=== PATIENT | female | born 1965 | race Native Hawaiian/Other Pacific Islander ===

== ENCOUNTER 2020-06-29 08:48 | Outpatient (CLI) | payer OTHER ==
[~2020-06-29] VITALS: Ht 160 cm; Wt 93.9 kg
== END 2020-06-29 22:33 | disposition home or self-care (01) ==
LOC: NM 08:48
PROVIDERS: ATTEND Specialist
DX: Z01.810 Encounter for preprocedural cardiovascular examination (principal); I10 Essential (primary) hypertension; R94.31 Abnormal electrocardiogram [ECG] [EKG]
CPT/HCPCS: A9500; J2785